=== PATIENT | female | born 1995 | race Two or more races ===

== ENCOUNTER 2018-04-14 01:27 | Outpatient (CLI) | payer OTHER | END 2018-04-14 09:10 | disposition home or self-care (01) | LOC: OBS/DEL 01:27 | DX: O48.0 Post-term pregnancy (principal); Z34.83 Encounter for supervision of other normal pregnancy, third trimester ==

== ENCOUNTER 2018-04-15 19:28 | Inpatient (IN) | payer OTHER ==
[~2018-04-15] VITALS: Ht 157.5 cm; Wt 3.2 kg
[2018-04-16] MEDS ORDERED: PRENATAL TABLE1 EAC1 PO (13:45)
== END 2018-04-18 16:28 | disposition home or self-care (01) | DRG 807 ==
LOC: OB/GYN 19:28 → LDR 19:28 → O/R 04-16 19:43 → OB/GYN 04-16 21:26
PROVIDERS: ADMIT Obstetrics & Gynecology
PROC: 4A1HXCZ Monitoring of Products of Conception, Cardiac Rate, External Approach (ICD-10-PCS; 2018-04-15)
PROC: 3E033VJ Introduction of Other Hormone into Peripheral Vein, Percutaneous Approach (ICD-10-PCS; 2018-04-16)
PROC: 10E0XZZ Delivery of Products of Conception, External Approach (ICD-10-PCS; principal; 2018-04-16 17:15)
DX: O80 Encounter for full-term uncomplicated delivery (principal); Z37.0 Single live birth; Z3A.40 40 weeks gestation of pregnancy